=== PATIENT | male | born 1980 ===

== ENCOUNTER → 2018-11-05 | Outpatient (CLI) | payer OTHER ==
[2018-11-05 21:15] LABS: BASO # 0.1 x10^3/uL (0.0-0.2); BASO % 1 % (0-3); EOS # 0.4 x10^3/uL (0.0-0.7); EOS % 5 % (0-3); HEMATOCRIT 41.9 % (39.0-53.0); HEMOGLOBIN 13.9 g/dL (13.0-17.5); LYMPH % 25 % (24-48); MEAN CORPUSCULAR HEMOGLOBIN 27 pg (25-35); MEAN CORPUSCULAR HGB CONC 33 g/dL (31-37); MEAN CORPUSCULAR VOLUME 80 fL (79-100); MONO # 0.5 x10^3/uL (0.0-1.1); MONO % 6 % (0-9); NEUT # 4.8 x10^3uL (1.8-7.7); NEUT % 63 % (31-73); PLATELET COUNT 226 x10^3/uL (140-400); RED BLOOD COUNT 5.22 x10^6/uL (4.30-5.70); RED CELL DISTRIBUTION WIDTH 13.8 % (11.5-14.5); WHITE BLOOD COUNT 7.7 x10^3/uL (4.0-11.0)
[2018-11-05 21:27] LABS: CREATININE 1.3 mg/dL (0.7-1.3); GFR 62.5; TOTAL BILIRUBIN 0.3 mg/dL (0.2-1.0)
[2018-11-06 07:50] LABS: TOTAL PROTEIN 6.9 g/dL (6.4-8.2)
[2018-11-06 07:54] LABS: ALBUMIN/GLOBULIN RATIO 1.4 (1.0-1.7)
[2018-11-06 07:55] LABS: CALCIUM 9.4 mg/dL (8.5-10.1)
== END | disposition home or self-care (01) ==
LOC: SPEC 20:57
PROVIDERS: ATTEND Family Medicine
DX: R07.9 Chest pain, unspecified (principal)
CPT/HCPCS: 36415; 80053; 84484; 85025; 85379